=== PATIENT | male | born 1960 | race Two or more races ===

== ENCOUNTER → 2017-07-06 | Outpatient (CLI) | payer SELFPAY ==
[~2017-07-06] VITALS: Ht 167.6 cm; Wt 90.7 kg
== END | disposition home or self-care (01) ==
LOC: Rad HDHVI 14:41 → EDBD 14:41
PROVIDERS: ATTEND Internal Medicine
DX: I10 Essential (primary) hypertension (principal); E78.00 Pure hypercholesterolemia, unspecified; E11.9 Type 2 diabetes mellitus without complications; Z98.61 Coronary angioplasty status
CPT/HCPCS: 78452; 93017; 96374; A9500